=== PATIENT | female | born 1985 | race Hispanic/Latino ===

== ENCOUNTER 2016-10-21 13:38 | Emergency (ER) | payer OTHER, MEDICAID ==
[2016-10-21 13:39] VITALS: BMI 42.3
[2016-10-21 13:48] VITALS: BP 108/41; PULSE 62; RESP 18; TEMP 98.4; O2SAT 98
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
== END 2016-10-21 15:51 | disposition home or self-care (01) ==
LOC: H.ER 13:38
DX: S06.0X0A Concussion without loss of consciousness, initial encounter (principal); V49.49XA Driver injured in collision with other motor vehicles in traffic accident, initial encounter; Y92.481 Parking lot as the place of occurrence of the external cause

== ENCOUNTER 2017-10-08 21:51 | Emergency (ER) | payer MEDICAID, OTHER ==
[2017-10-08 21:51] VITALS: BMI 42.3
[2017-10-08 21:59] VITALS: BP 125/86; PULSE 62; RESP 18; TEMP 97.7; O2SAT 99
[2017-10-08] MEDS ORDERED: Amoxicillin-Clav 875-125 mg Tab PO STA (22:06)
--- NOTE | 2017-10-08 22:07 | ED PDOC ---
HPI: CCC, URI, Sore Throat Time Seen by Provider: 10/08/17 22:03 Chief Complaint (Nursing): ENT Problem Chief Complaint (Provider): Ear pain History Per: Patient Additional Complaint(s): 32 yo female, no PMH, presents to ED with c/o left earache x2 wks, impaired hearing started 2 hrs ago. Pt report sinus infection 2 weeks ago that is now improved. Past Medical History Reviewed: Nursing Documentation, Vital Signs Vital Signs: Last Vital Signs Temp 97.7 F 10/08/17 21:54 Pulse 62 10/08/17 21:54 Resp 18 10/08/17 21:54 BP 125/86 10/08/17 21:54 Pulse Ox 99 10/08/17 22:07 - Medical History PMH: No Chronic Diseases Denies: Chronic Kidney Disease - Surgical History Surgical History: - Family History Family History: States: Unknown Family Hx - Living Arrangements Living Arrangements: With Family - Social History Current smoker - smoking cessation education provided: No Alcohol: Social Drugs: Denies - Home Medications Home Medications: Ambulatory Orders Medication Instructions Recorded Cyclobenzaprine [Cyclobenzaprine 10 mg PO Q8 PRN #30 tab 05/11/15 HCl] Naproxen [Naprosyn] 500 mg PO BID PRN #30 tab 05/11/15 Cyclobenzaprine [Cyclobenzaprine 10 mg PO Q8 PRN #9 tab 10/21/16 HCl] Naproxen [Naprosyn] 500 mg PO BID PRN #14 tablet 10/21/16 Amoxicillin/Clavulanate [Augmentin 1 tab PO BID #14 tab 10/08/17 875 MG-125 MG] Ciprofloxacin/Dexamethasone 1 drop OT BID #1 bottle 10/08/17 [Ciprodex 0.3%-0.1% 7.5 Ml] Ibuprofen [Motrin] 600 mg PO Q6 #20 tab 10/08/17 - Allergies Allergies/Adverse Reactions: Allergies Allergy/AdvReac Type Severity Reaction Status Date / Time acetaminophen [From Lortab] Allergy ANAPHYLAXIS Verified 10/08/17 21:59 hydrocodone bitartrate Allergy ANAPHYLAXIS Verified 10/08/17 21:59 [From Lortab] Review of Systems ROS Statement: Except As Marked, All Systems Reviewed And Found Negative ENT: Positive for: Ear Pain Physical Exam - Reviewed Nursing Documentation Reviewed: Yes Vital Signs Reviewed: Yes - Physical Exam Appears: Positive for: Well, Non-toxic, No Acute Distress Head Exam: Positive for: ATRAUMATIC, NORMAL INSPECTION, NORMOCEPHALIC Skin: Positive for: Normal Color, Warm, DRY Eye Exam: Positive for: EOMI, Normal appearance, PERRL ENT: Positive for: TM Is/Are (erythematous). Negative for: Pharyngeal Erythema , Tonsillar Exudate, Tonsillar Swelling Neck: Positive for: Normal, Painless ROM Cardiovascular/Chest: Positive for: Regular Rate, Rhythm Respiratory: Positive for: CNT, Normal Breath Sounds Gastrointestinal/Abdominal: Positive for: Normal Exam, Soft Back: Positive for: Normal Inspection Extremity: Positive for: Normal ROM Neurologic/Psych: Positive for: Alert, Oriented - ECG O2 Sat by Pulse Oximetry: 99 Medical Decision Making Medical Decision Making: Administered Motrin and Augmentin PO Disposition - Clinical Impression Clinical Impression: Left ear pain, Otitis - Patient ED Disposition Is Patient to be Admitted: No - Disposition Disposition: Routine/Home Disposition Time: 22:40 Condition: STABLE Prescriptions: Amoxicillin/Clavulanate [Augmentin 875 MG-125 MG] 1 tab PO BID #14 tab Ciprofloxacin/Dexamethasone [Ciprodex 0.3%-0.1% 7.5 Ml] 1 drop OT BID #1 bottle Ibuprofen [Motrin] 600 mg PO Q6 #20 tab Instructions: Ear Infections (Otitis Media) Forms: [employer] (Polish)
[2017-10-08] MEDS ORDERED: Amoxicillin-Clav 875-125 mg Tab PO ONE (22:26)
== END 2017-10-08 23:33 | disposition home or self-care (01) ==
LOC: H.ER 21:51
DX: H66.92 Otitis media, unspecified, left ear (principal); H91.92 Unspecified hearing loss, left ear

== ENCOUNTER 2017-11-25 16:10 | Emergency (ER) | payer MEDICAID ==
[2017-11-25 16:10] VITALS: BMI 42.3
[2017-11-25 16:17] VITALS: BP 98/65; PULSE 70; RESP 18; TEMP 97.4; O2SAT 100
--- NOTE | 2017-11-25 16:52 | ED PDOC ---
Upper Extremity Pain/Injury Time Seen by Provider: 11/25/17 16:35 Chief Complaint (Nursing): Finger,Hand,&Wrist Chief Complaint (Provider): Left Wrist Pain History Per: Patient Additional Complaint(s): 32 year old right hand dominant female presents to the ED for evaluation of atraumatic left wrist pain. She states that she has had intermittent episodes of the pain, about one day in length, to the wrist for several years, but as of four days ago, the pain became persistent and associated with tingling. She reports taking Tylenol and Motrin with minimal relief. Denies chest pain, SOB or WORKMAN. PMD: none Past Medical History Reviewed: Historical Data, Nursing Documentation, Vital Signs Vital Signs: Last Vital Signs Temp 97.4 F L 11/25/17 16:15 Pulse 70 11/25/17 16:15 Resp 18 11/25/17 16:15 BP 98/65 L 11/25/17 16:15 Pulse Ox 100 11/25/17 16:15 - Medical History PMH: No Chronic Diseases - Surgical History Surgical History: (x3) - Family History Family History: States: No Known Family Hx - Living Arrangements Living Arrangements: With Family - Social History Current smoker - smoking cessation education provided: No Alcohol: None Drugs: Denies - Home Medications Home Medications: Ambulatory Orders Medication Instructions Recorded Cyclobenzaprine [Cyclobenzaprine 10 mg PO Q8 PRN #30 tab 05/11/15 HCl] Naproxen [Naprosyn] 500 mg PO BID PRN #30 tab 05/11/15 Cyclobenzaprine [Cyclobenzaprine 10 mg PO Q8 PRN #9 tab 10/21/16 HCl] Naproxen [Naprosyn] 500 mg PO BID PRN #14 tablet 10/21/16 Amoxicillin/Clavulanate [Augmentin 1 tab PO BID #14 tab 10/08/17 875 MG-125 MG] Ciprofloxacin/Dexamethasone 1 drop OT BID #1 bottle 10/08/17 [Ciprodex 0.3%-0.1% 7.5 Ml] Ibuprofen [Motrin] 600 mg PO Q6 #20 tab 10/08/17 Cyclobenzaprine [Cyclobenzaprine 10 mg PO TID PRN #20 tab 11/25/17 HCl] Naproxen [Naprosyn] 500 mg PO BID #20 tab 11/25/17 - Allergies Allergies/Adverse Reactions: Allergies Allergy/AdvReac Type Severity Reaction Status Date / Time acetaminophen [From Lortab] Allergy ANAPHYLAXIS Verified 10/08/17 21:59 hydrocodone bitartrate Allergy ANAPHYLAXIS Verified 10/08/17 21:59 [From Lortab] Review of Systems ROS Statement: Except As Marked, All Systems Reviewed And Found Negative Musculoskeletal: Positive for: Other (left wrist pain) Neurological: Positive for: Other (tingling left wrist) Physical Exam - Reviewed Nursing Documentation Reviewed: Yes Vital Signs Reviewed: Yes - Physical Exam Appears: Positive for: Well, Non-toxic, No Acute Distress Head Exam: Positive for: NORMOCEPHALIC Skin: Positive for: Normal Color. Negative for: Rash Eye Exam: Positive for: Normal appearance Neck: Positive for: Normal. 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 Scribe Attestation: Documented by Winifred Joaquin, acting as a scribe for Nohemi Anderson PA-C Provider Scribe Attestation: All medical record entries made by the Scribe were at my direction and personally dictated by me. I have reviewed the chart and agree that the record accurately reflects my personal performance of the history, physical exam, medical decision making, and the department course for this patient. I have also personally directed, reviewed, and agree with the discharge instructions and disposition. Procedures - Splinting Location: left wrist Pre-Made Type: velcro Pre-Proc Neuro Vasc Exam: normal Post-Proc Neuro Vasc Exam: normal Disposition - Clinical Impression Clinical Impression: Wrist tendonitis - Patient ED Disposition Is Patient to be Admitted: No Counseled Patient/Family Regarding: Studies Performed, Diagnosis, Need For Followup, Rx Given - Disposition Referrals: Pedro Leary III, MD [Staff Provider] - Disposition: Routine/Home Disposition Time: 17:46 Condition: STABLE Additional Instructions: ice, rest and elevate affected area. Take prescription meds as directed as needed for pain. Follow-up with orthopedist for any persistent symptoms. Prescriptions: Cyclobenzaprine [Cyclobenzaprine HCl] 10 mg PO TID PRN #20 tab PRN Reason: Muscle Spasm Naproxen [Naprosyn] 500 mg PO BID #20 tab Instructions: Tendonitis (DC), Wrist Sprain (DC) Forms: [employer] (Colombian)
--- NOTE | 2017-11-25 17:40 | RAD ---
Date of service: 11/25/2017 PROCEDURE: Left Wrist Radiographs. HISTORY: pain COMPARISON: None. FINDINGS: BONES: Bone alignment and mineralization are normal. There is no acute displaced fracture or bone destruction. JOINTS: Normal. No dislocation. SOFT TISSUES: Normal. OTHER FINDINGS: None. IMPRESSION: No acute fracture or dislocation.
== END 2017-11-25 17:58 | disposition home or self-care (01) ==
LOC: H.ER 16:10
DX: M65.842 Other synovitis and tenosynovitis, left hand (principal)